=== PATIENT | male | born 1980 | race Caucasian/White ===

== ENCOUNTER 2020-08-15 16:47 | Emergency (ER) | payer SELFPAY ==
[2020-08-15] MEDS ORDERED: Lidocaine 1% 10 ML MDV INJECT ONE (17:08)
--- NOTE | 2020-08-15 17:10 | EDM.PDOC ---
ED HPI GENERAL MEDICAL PROBLEM - General Chief Complaint: Laceration Stated Complaint: R HAND LAC Time Seen by Provider: 08/15/20 17:05 Source of Information: Reports: Patient, RN Notes Reviewed - History of Present Illness INITIAL COMMENTS - FREE TEXT/NARRATIVE: 39 yr old male suffered lac to lateral aspect of R ring finger. Cut by sharp edge of siva ornament. - Related Data Allergies Allergy/AdvReac Type Severity Reaction Status Date / Time No Known Allergies Allergy Verified 08/15/20 17:01 Home Meds: Home Meds . [No Known Home Meds] 08/15/20 [History] Past Medical History - Past Health History Medical/Surgical History: Denies Medical/Surgical History Social & Family History - Tobacco Use Tobacco Use Status *Q: Never Tobacco User - Recreational Drug Use Recreational Drug Use: No ED ROS GENERAL - Review of Systems Review Of Systems: See Below HEENT: Reports: No Symptoms Musculoskeletal: Reports: Other (finger lac) Neurological: Denies: Numbness, Tingling ED EXAM, SKIN/RASH Exam: See Below General Appearance: Alert, No Apparent Distress Head: Atraumatic Neck: Supple Respiratory/Chest: No Respiratory Distress Extremities: Other (2 cm flap lac lateral aspect of R small finger, moderately deep, gaping) Neurological: Alert, Oriented, No Motor/Sensory Deficits Skin: Warm, Dry ED SKIN PROCEDURES - Laceration/Wound Repair Right Lateral Hand Appearance: Linear, Other (flap configuration) Anesthetic Type: Local Local Anesthesia - Lidocaine (Xylocaine): 1% Plain Skin Prep: Saline Closed with: Sutures Lac/Wound length In cm: 2 Suture Size: 4-0 Suture Type: Nylon Suture Size: 3-0 Course - Vital Signs Last Recorded V/S: Last Vital Signs Temp 96.5 F L 08/15/20 16:59 Pulse 83 08/15/20 16:59 Resp 16 08/15/20 16:59 BP Pulse Ox 97 08/15/20 16:59 - Orders/Labs/Meds Meds: Medications Discontinued Medications Generic Name Dose Route Start Last Admin Trade Name Freq PRN Reason Stop Dose Admin Lidocaine HCl 10 ml 08/15/20 17:08 08/15/20 17:21 Xylocaine 1% INJECT 08/15/20 17:09 10 ml ONETIME ONE Administration Departure - Departure Time of Disposition: 17:38 Disposition: Home, Self-Care 01 Condition: Fair Clinical Impression: Hand laceration Qualifiers: Encounter type: initial encounter Foreign body presence: unspecified Laterality: right Qualified Code(s): S61.411A - Laceration without foreign body of right hand, initial encounter - Discharge Information Instructions: Laceration Care, Adult, [id number] Referrals: Haley Heck DIRECTOR [employer]NALYSIS [Primary Care Provider] - Forms: ED Department Discharge Additional Instructions: Laceration care instr. Stitches out in about 10 days, call clinic for appt. Have rechecked any sign of infection. Sepsis Event Note (ED) - Evaluation Sepsis Screening Result: No Definite Risk - Focused Exam Vital Signs: Vital Signs Temp Pulse Resp Pulse Ox 08/15/20 16:59 96.5 F L 83 16 97
== END 2020-08-15 17:45 | disposition home or self-care (01) ==
LOC: JD.ED 16:47
DX: S61.216A Laceration without foreign body of right little finger without damage to nail, initial encounter (principal); W26.8XXA Contact with other sharp object(s), not elsewhere classified, initial encounter
CPT/HCPCS: 12001; 99282; J2001